=== PATIENT | female | born 1945 | race African-American/Black ===

== ENCOUNTER 2018-10-03 10:17 | Emergency (ER) | payer MEDICARE ==
--- NOTE | 2018-10-03 10:55 | RAD ---
XR Chest Pa Lat STANDARD HISTORY: Irregular heart rate COMPARISON: 06/28/2018 FINDINGS: The heart size is borderline. The lungs are well expanded without focal areas of consolidat ion, pneumothorax or pleural effusions. IMPRESSION: No radiographic evidence of acute cardiopulmonary process.
[2018-10-03 11:16] LABS: #Basophils 0.1 thou/uL (0.0-0.2); #Eosinphils 0.4 thou/uL (0.0-0.7); #Lymphocytes 1.2 thou/uL (1.20-3.40); #Monocytes 0.6 thou/uL (0.11-0.59); #Neutrophils 2.8 thou/uL (1.40-6.50); %Basophils 2.8 % (0.0-1.0); %Lymphocytes 23.8 % (21.0-51.0); %Monocytes 11.2 % (0.0-10.0); %Neutrophils 55.3 % (42.0-75.0); Hemoglobin 11.2 g/dL (12.0-16.0); Mean Corpuscular HGB CONC 33.1 g/dL (32.0-36.0); Mean Corpuscular Hemoglobin 28.3 pg (27.0-31.0); Mean Corpuscular Volume 85.5 fL (78.0-98.0); Mean Platelet Volume 6.8 fL (7.4-10.4); Platelet Count 139 thou/uL (130-400); RBC Distribution Width 13.6 % (11.5-14.5); Red Blood Cell (RBC) Count 3.97 mill/uL (4.20-5.40); White Blood Cell (WBC) Count 5.1 thou/uL (4.8-10.8)
[2018-10-03 11:30] LABS: ALT (SGPT) 13 U/L (8-55); AST (SGOT) 25 U/L (5-34); Albumin 3.8 g/dL (3.4-4.8); Alkaline Phosphatase 81 U/L (40-150); Anion Gap 15 mmol/L (10-20); BUN (Urea Nitrogen) 41 mg/dL (9.8-20.1); Bilirubin, Total 0.4 mg/dL (0.2-1.2); Calc. Creatinine Clearance 0 mL/min (70-130); Calcium 8.9 mg/dL (7.8-10.44); Carbon Dioxide 16 mmol/L (23-31); Chloride 112 mmol/L (98-107); Estimated GFR-MDRD 33; Globulin 3.6 g/dL (2.4-3.5); Glucose 122 mg/dL (83-110); Potassium 4.4 mmol/L (3.5-5.1); Protein, Total 7.4 g/dL (6.0-8.3); Sodium 139 mmol/L (136-145)
[2018-10-03 11:48] LABS: CKMB 2.4 ng/mL (0-6.6)
[2018-10-03] MEDS ORDERED: Aspirin Chewable 81 MG TAB ONE (12:19)
== END 2018-10-03 13:17 | disposition short-term general hospital (02) ==
LOC: MADERS 10:17
DX: I49.3 Ventricular premature depolarization (principal); E87.2 Acidosis; R74.8 Abnormal levels of other serum enzymes; I11.0 Hypertensive heart disease with heart failure; I50.9 Heart failure, unspecified; Z79.82 Long term (current) use of aspirin; Z79.899 Other long term (current) drug therapy
CPT/HCPCS: 71046; 80053; 82553; 83605; 83880; 84443; 84484; 85025; 93005; 94760

== ENCOUNTER 2019-01-22 15:40 | Emergency (ER) | payer MEDICARE | END 2019-01-22 17:48 | disposition home or self-care (01) | LOC: MADERS 15:40 | DX: I95.1 Orthostatic hypotension (principal); E86.0 Dehydration; I11.0 Hypertensive heart disease with heart failure; I50.9 Heart failure, unspecified; Z79.82 Long term (current) use of aspirin; Z79.899 Other long term (current) drug therapy | CPT/HCPCS: 96360 ==

== ENCOUNTER 2019-10-27 16:41 | Emergency (ER) | payer OTHER ==
[2019-10-27] MEDS ORDERED: HYDROcodone/Acetaminophen 5/325 mg Tablet ONE (18:01)
[2019-10-27] MEDS ORDERED: Acetaminophen 325 MG TAB ONE (18:01)
--- NOTE | 2019-10-27 18:09 | RAD ---
LEFT LEG TWO VIEWS: 10/27/19 HISTORY: Left leg wound and pain. FINDINGS/IMPRESSION: The left tibia and fibula are intact. There are degenerative changes in the knee joint. There are sof t tissue and vascular calcifications. POS: OFF
== END 2019-10-27 19:26 | disposition home or self-care (01) ==
LOC: MADERS 16:41
DX: G89.29 Other chronic pain (principal); M79.662 Pain in left lower leg; I11.0 Hypertensive heart disease with heart failure; I50.9 Heart failure, unspecified; Z79.899 Other long term (current) drug therapy; Z79.82 Long term (current) use of aspirin

== ENCOUNTER 2020-02-19 10:52 | Emergency (ER) | payer OTHER ==
--- NOTE | 2020-02-19 12:53 | RAD ---
XR Chest 1 View Portable History: Dyspnea Comparison: Radiograph 2019 Findings: Central venous catheter tip sits at the inferior SVC/cavoatrial junction. Lungs are clear. No pneumothorax. No effusion. No acute osseous abnormality. Mild degenerative changes both acromioclavicular joints. Impression: No acute intrathoracic abnormality.
[2020-02-19 13:00] LABS: #Basophils 0.2 thou/uL (0.0-0.2); #Lymphocytes 1.3 thou/uL (1.20-3.40); #Neutrophils 11.5 thou/uL (1.40-6.50); %Basophils 1.4 % (0.0-1.0); %Eosinophils 0.3 % (0.0-10.0); %Lymphocytes 9.5 % (21.0-51.0); %Monocytes 7.3 % (0.0-10.0); %Neutrophils 81.5 % (42.0-75.0); Hemoglobin 8.5 g/dL (12.0-16.0); Mean Corpuscular HGB CONC 32.8 g/dL (32.0-36.0); Mean Corpuscular Hemoglobin 28.2 pg (27.0-31.0); Mean Platelet Volume 7.2 fL (7.4-10.4); Platelet Count 306 thou/uL (130-400); RBC Distribution Width 13.5 % (11.5-14.5); Red Blood Cell (RBC) Count 3.02 mill/uL (4.20-5.40); White Blood Cell (WBC) Count 14.1 thou/uL (4.8-10.8)
[2020-02-19 13:01] LABS: Fibrinogen 398 mg/dL (253-463)
[2020-02-19 13:02] LABS: Prothrombin Time 13.7 sec (12.0-14.7)
[2020-02-19 13:06] LABS: Bilirubin Negative (Negative); Blood, Urine Negative (Negative); Clarity Clear (Clear); Glucose, Urine (Dipstick) Negative (Negative); Ketone, Urine Negative (Negative); Leukocyte Negative (Negative); Nitrite Negative (Negative); Protein, Urine (Dipstick) Negative (Neg-Trace); Urobilinogen 0.2 mg/dL (Less than 2)
[2020-02-19 13:13] LABS: ALT (SGPT) Less than 7 U/L (8-55); AST (SGOT) 12 U/L (5-34); Albumin 3.1 g/dL (3.4-4.8); Alkaline Phosphatase 74 U/L (40-110); Anion Gap 19 mmol/L (10-20); BUN (Urea Nitrogen) 65 mg/dL (9.8-20.1); Bilirubin, Total 0.3 mg/dL (0.2-1.2); CK (CPK) 29 U/L (29-168); Calc. Creatinine Clearance 0 mL/min (70-130); Calcium 8.3 mg/dL (7.8-10.44); Carbon Dioxide 15 mmol/L (23-31); Chloride 107 mmol/L (98-107); Globulin 3.4 g/dL (2.4-3.5); Glucose 138 mg/dL (83-110); Potassium 4.4 mmol/L (3.5-5.1); Protein, Total 6.5 g/dL (6.0-8.3); Sodium 137 mmol/L (136-145)
[2020-02-19 13:17] LABS: D-Dimer Test 7.78 *mcg/mL (0.27-0.43)
[2020-02-19 13:25] LABS: Platelet Count 306 thou/uL (130-400)
[2020-02-19 13:30] LABS: CKMB 1.6 ng/mL (0-6.6)
[2020-02-19] MEDS ORDERED: Cefepime 2 GM VIAL ONE (13:47)
[2020-02-19] MEDS ORDERED: Sodium Chloride 0.9% 100 ML ONE (13:47)
[2020-02-19] MEDS ORDERED: Enoxaparin Sodium 60 MG/0.6 ML SYRINGE ONE (14:17)
[2020-02-19] MEDS ORDERED: Dextrose 5% in Water 250 ML ONE ×2 (14:17→14:23)
[2020-02-19] MEDS ORDERED: Sodium Chloride 0.9% 2,000 ML ONE (14:17)
[2020-02-19] MEDS ORDERED: Enoxaparin Sodium 40 MG/0.4 ML SYRINGE ONE (14:22)
[2020-02-19] MEDS ORDERED: Ondansetron PF 4 MG/2 ML Vial ONE (15:42)
--- NOTE | 2020-02-19 17:02 | RAD ---
XR Chest 1 View Portable History: Dyspnea Comparison: Radiograph same day Findings: Subclavian central venous catheter tip projects over the cavoatrial junction. No pneumothor ax. Impression: No acute intrathoracic abnormality.
[2020-02-19 17:14] LABS: #Basophils 0.1 thou/uL (0.0-0.2); #Lymphocytes 1.5 thou/uL (1.20-3.40); #Monocytes 0.7 thou/uL (0.11-0.59); %Basophils 0.7 % (0.0-1.0); %Eosinophils 0.1 % (0.0-10.0); %Lymphocytes 11.4 % (21.0-51.0); %Monocytes 5.2 % (0.0-10.0); %Neutrophils 82.6 % (42.0-75.0); Hemoglobin 8.5 g/dL (12.0-16.0); Mean Corpuscular Hemoglobin 27.8 pg (27.0-31.0); Mean Corpuscular Volume 86.9 fL (78.0-98.0); Mean Platelet Volume 7.2 fL (7.4-10.4); Platelet Count 293 thou/uL (130-400); RBC Distribution Width 13.4 % (11.5-14.5); Red Blood Cell (RBC) Count 3.06 mill/uL (4.20-5.40); White Blood Cell (WBC) Count 13.3 thou/uL (4.8-10.8)
[2020-02-19 17:17] LABS: SARS-CoV-2 NAA Rapid Test Not Detected (NotDetected)
[2020-02-19 17:28] LABS: ALT (SGPT) Less than 7 U/L (8-55); AST (SGOT) 12 U/L (5-34); Albumin 2.8 g/dL (3.4-4.8); Alkaline Phosphatase 68 U/L (40-110); Anion Gap 17 mmol/L (10-20); BUN (Urea Nitrogen) 57 mg/dL (9.8-20.1); Bilirubin, Total 0.4 mg/dL (0.2-1.2); Calc. Creatinine Clearance 0 mL/min (70-130); Calcium 7.5 mg/dL (7.8-10.44); Carbon Dioxide 14 mmol/L (23-31); Chloride 110 mmol/L (98-107); Globulin 3.2 g/dL (2.4-3.5); Glucose 204 mg/dL (83-110); Potassium 3.7 mmol/L (3.5-5.1); Sodium 137 mmol/L (136-145)
[2020-02-19 17:41] LABS: FSP-Qualitative ABNORMAL (Normal); FSP-Semiquantitative >=20 & <40 mcg/mL (Less than 5)
[2020-02-19 17:44] LABS: CKMB 2.1 ng/mL (0-6.6)
== END 2020-02-19 18:00 | disposition short-term general hospital (02) ==
LOC: MADERS 11:13
DX: A41.9 Sepsis, unspecified organism (principal); D64.9 Anemia, unspecified; R79.1 Abnormal coagulation profile; R79.89 Other specified abnormal findings of blood chemistry; L97.929 Non-pressure chronic ulcer of unspecified part of left lower leg with unspecified severity; R00.0 Tachycardia, unspecified; I11.0 Hypertensive heart disease with heart failure; I50.9 Heart failure, unspecified; Z79.899 Other long term (current) drug therapy; Z79.82 Long term (current) use of aspirin
CPT/HCPCS: 0240U; 36556; 51702; 71045; 80053; 81003; 82550; 82553; 83605; 84484; 85025; 85049; 85300; 85362; 85379; 85384; 85610; 85730; 86140; 87040; 87070; 87077; 87086; 87186; 87205; 93005; 94760; 96365; 96366; 96367; 96372; 96375; J0692; J1650; J2405; J3370; J3490; J7050; J7070